=== PATIENT | female | born 1965 | race African-American/Black ===

== ENCOUNTER 2018-11-13 19:44 | Emergency (ER) | payer OTHER ==
[~2018-11-13] VITALS: Ht 167.6 cm; Wt 111.8 kg
[~2018-11-13 19:44] MED LIST: AMLO10TA55 PO; BENA5TAB6 PO; GLYB5TAB8 PO; HYDR25TA PO; LINA5TAB PO; METF-446 PO; NAPR-58 PO; SIMV20TA6 PO
[2018-11-13] MEDS ORDERED: BENA20 PO (20:43)
[2018-11-13] MEDS ORDERED: GLIP10 PO (20:43)
[2018-11-13] MEDS ORDERED: CHOL50004 PO (20:43)
[2018-11-13 20:44] LABS: GLUCOSE,POINT OF CARE 291 MG/DL (70-110)
[2018-11-13] MEDS ORDERED: KETOROLAC TROMETHAMINE 60 MG/2 ML VIAL IM ONE (21:15)
[2018-11-13] MEDS ORDERED: KETOROLAC TROMETHAMINE 30 MG/ML VIAL IM ONE (21:15)
[2018-11-13 21:48] VITALS: BP 159/80
== END 2018-11-13 22:00 | disposition home or self-care (01) ==
LOC: EMS 19:45
DX: M62.838 Other muscle spasm (principal); M54.2 Cervicalgia; E11.9 Type 2 diabetes mellitus without complications; E78.00 Pure hypercholesterolemia, unspecified; I10 Essential (primary) hypertension; Z88.1 Allergy status to other antibiotic agents; Z79.84 Long term (current) use of oral hypoglycemic drugs; Z91.018 Allergy to other foods
CPT/HCPCS: 82962; 96372; 99283; J1885

== ENCOUNTER 2019-03-31 16:22 | Emergency (ER) | payer OTHER ==
[~2019-03-31] VITALS: Ht 167.6 cm; Wt 99.5 kg
[~2019-03-31 16:22] MED LIST changes: +BENA20 PO; -BENA5TAB6 PO; +CHOL50004 PO; +GLIP10 PO; -GLYB5TAB8 PO; -NAPR-58 PO
[2019-03-31 16:32] VITALS: BP 149/84
[2019-03-31 16:39] LABS: GLUCOSE,POINT OF CARE 219 MG/DL (70-110)
[2019-03-31] MEDS ORDERED: IBUPROFEN 600 MG TABLET PO ONE (17:15)
== END 2019-03-31 17:20 | disposition home or self-care (01) ==
LOC: EMS 16:22
DX: H66.91 Otitis media, unspecified, right ear (principal); H60.91 Unspecified otitis externa, right ear

== ENCOUNTER 2020-08-21 12:59 | Emergency (ER) | payer MEDICARE, OTHER ==
[~2020-08-21] VITALS: Ht 167.6 cm; Wt 109.1 kg
[~2020-08-21 12:59] MED LIST changes: -BENA20 PO; +BENA20TA11 PO; +CHOL125C2 PO; -CHOL50004 PO; +SIMV-43 PO; -SIMV20TA6 PO
[2020-08-21 14:04] VITALS: BP 126/72
[2020-08-21] MEDS ORDERED: KETOROLAC TROMETHAMINE 10 MG TABLET PO ONE (14:15)
== END 2020-08-21 15:09 | disposition home or self-care (01) ==
LOC: EMS 13:07
DX: S09.90XA Unspecified injury of head, initial encounter (principal); E11.9 Type 2 diabetes mellitus without complications; E78.00 Pure hypercholesterolemia, unspecified; I10 Essential (primary) hypertension; F17.210 Nicotine dependence, cigarettes, uncomplicated; F12.90 Cannabis use, unspecified, uncomplicated; Z88.8 Allergy status to other drugs, medicaments and biological substances; Z79.84 Long term (current) use of oral hypoglycemic drugs; W19.XXXA Unspecified fall, initial encounter; Y93.89 Activity, other specified; Y92.89 Other specified places as the place of occurrence of the external cause; Y99.8 Other external cause status
CPT/HCPCS: 70450; 72125

== ENCOUNTER 2022-12-11 10:33 | Emergency (ER) | payer MEDICARE, OTHER ==
[~2022-12-11] VITALS: Ht 167.6 cm; Wt 93.2 kg
[~2022-12-11 10:33] MED LIST changes: -BENA20TA11 PO; +BENA20TA83 PO; -CHOL125C2 PO; +CHOL500013 PO; -GLIP10 PO; +GLIP10TA10 PO
[2022-12-11 10:40] VITALS: BP 152/74
[2022-12-11] MEDS ORDERED: IBUPROFEN 600 MG TABLET PO ONE (12:45)
[2022-12-11] MEDS ORDERED: HYDROCODONE/ACETAMINOPHEN 5-325 MG TABLET PO ONE (12:45)
[2022-12-11] MEDS ORDERED: HYDR-4723 PO (12:46)
[2022-12-11] MEDS ORDERED: IBUP-1554 PO (12:46)
== END 2022-12-11 13:04 | disposition home or self-care (01) ==
LOC: EMS 10:33
DX: S63.501A Unspecified sprain of right wrist, initial encounter (principal); M19.031 Primary osteoarthritis, right wrist; E11.9 Type 2 diabetes mellitus without complications; E78.00 Pure hypercholesterolemia, unspecified; I10 Essential (primary) hypertension; F17.210 Nicotine dependence, cigarettes, uncomplicated; F12.90 Cannabis use, unspecified, uncomplicated; Z98.890 Other specified postprocedural states; Z91.018 Allergy to other foods; W18.30XA Fall on same level, unspecified, initial encounter; Y93.89 Activity, other specified; Y92.89 Other specified places as the place of occurrence of the external cause; Y99.8 Other external cause status
CPT/HCPCS: 82962; 99283

== ENCOUNTER 2023-03-14 21:47 | Emergency (ER) | payer MEDICARE, OTHER ==
[~2023-03-14] VITALS: Ht 167.6 cm; Wt 96.4 kg
[~2023-03-14 21:47] MED LIST changes: +HYDR-4723 PO; +IBUP-1554 PO; -LINA5TAB PO
[2023-03-14 22:04] VITALS: TEMP 98.3
[2023-03-14 23:45] VITALS: BP 134/69; PULSE 71; RESP 18
[2023-03-15] MEDS ORDERED: KETOROLAC TROMETHAMINE 60 MG/2 ML VIAL IM ONE
== END 2023-03-15 00:41 | disposition home or self-care (01) ==
LOC: EMS 21:49
DX: M25.561 Pain in right knee (principal); E11.9 Type 2 diabetes mellitus without complications; E78.00 Pure hypercholesterolemia, unspecified; I10 Essential (primary) hypertension; F17.210 Nicotine dependence, cigarettes, uncomplicated; F12.90 Cannabis use, unspecified, uncomplicated; Z90.49 Acquired absence of other specified parts of digestive tract; Z98.890 Other specified postprocedural states; Z91.018 Allergy to other foods
CPT/HCPCS: 99283; 73562; 96372; J1885

== ENCOUNTER 2024-06-28 20:51 | Emergency (ER) | payer OTHER ==
[~2024-06-28] VITALS: Ht 165.1 cm; Wt 105.0 kg
[~2024-06-28 20:51] MED LIST changes: +BENA-18 PO; -BENA20TA83 PO; -GLIP10TA10 PO; +GLIP10TA17 PO; +HYDR-4062 PO; -HYDR-4723 PO
[2024-06-28 20:53] VITALS: BP 140/80; PULSE 92; RESP 16; TEMP 97; O2SAT 97
[2024-06-28] MEDS ORDERED: ACET-2080 PO (23:12)
[2024-06-28] MEDS ORDERED: IBUP-1554 PO (23:12)
[2024-06-28] MEDS: IBUPROFEN 600 MG TABLET PO ONE (23:22)
[2024-06-28] MEDS: ACETAMINOPHEN/CODEINE 300-30 MG TABLET PO ONE (23:22)
== END 2024-06-28 23:26 | disposition home or self-care (01) ==
LOC: EMS 20:51
DX: S20.212A Contusion of left front wall of thorax, initial encounter (principal); I10 Essential (primary) hypertension; E11.9 Type 2 diabetes mellitus without complications; E78.00 Pure hypercholesterolemia, unspecified; Z90.49 Acquired absence of other specified parts of digestive tract; Z79.84 Long term (current) use of oral hypoglycemic drugs; Z79.899 Other long term (current) drug therapy; W22.8XXA Striking against or struck by other objects, initial encounter; Y93.89 Activity, other specified; Y92.89 Other specified places as the place of occurrence of the external cause; Y99.8 Other external cause status
CPT/HCPCS: 71101; 93005; 99283; 99284

== ENCOUNTER 2025-01-26 01:35 | Emergency (ER) | payer OTHER ==
[~2025-01-26] VITALS: Ht 167.6 cm; Wt 96.4 kg
[~2025-01-26 01:35] MED LIST changes: +ACET-2080 PO; -GLIP10TA17 PO
[2025-01-26 01:44] VITALS: BP 128/95; PULSE 98; RESP 16; TEMP 98.2; O2SAT 100
[2025-01-26 03:13] LABS: BASOPHILS % (AUTO) 0.7 % (0.0-2.0); HEMATOCRIT 32.7 % (36-46); HEMOGLOBIN 10.7 g/dL (12.0-16.0); LYMPHOCYTES # (AUTO) 2.8 K/uL (1.0-4.8); LYMPHOCYTES % (AUTO) 43.4 % (22.0-44.0); MEAN CORPUSCULAR HEMOGLOBIN 28.5 pg (26.0-34.0); MEAN CORPUSCULAR HGB CONC 32.8 G/dL (31.0-37.0); MEAN CORPUSCULAR VOLUME 87 fL (80-100); MONOCYTES # (AUTO) 0.5 K/uL (0.1-1.0); MONOCYTES % (AUTO) 8.4 % (2.0-9.0); NEUTROPHILS # (AUTO) 2.9 K/uL (1.8-7.7); NEUTROPHILS % (AUTO) 44.5 % (40.0-70.0); PLATELET COUNT (AUTO) 272 K/uL (150-450); RED BLOOD CELL COUNT(AUTO) 3.76 MIL/uL (4.00-5.20); RED CELL DISTRIBUTION WIDTH 14.9 % (11.5-14.5); WHITE BLOOD COUNT (AUTO) 6.5 K/uL (4.5-11.0)
[2025-01-26 03:15] LABS: CARBON DIOXIDE 25 mmol/L (22-29); CHLORIDE 102 mmol/L (98-107); POTASSIUM 3.8 mmol/L (3.5-5.1); SODIUM SERUM 142 mmol/L (136-145)
[2025-01-26 03:16] LABS: ANION GAP 15 mmol/L (8-16); CALCIUM, TOTAL 9.6 mg/dL (8.8-10.5); CREATININE 0.77 mg/dL (0.60-1.30); GLOMERULAR FILTR. RATE CALC > 60 mL/min (>60); GLUCOSE,RANDOM 123 mg/dL (70-110); UREA NITROGEN, BLOOD 16 mg/dL (7-18)
[2025-01-26 03:23] LABS: ALCOHOL, BLOOD (SERUM) 186 mg/dL (0-10)
[2025-01-26 03:26] LABS: TROPONIN I-HIGH SENSITIVITY 12 ng/L (<51)
== END 2025-01-26 04:01 | disposition home or self-care (01) ==
LOC: EMS 01:35
DX: F10.129 Alcohol abuse with intoxication, unspecified (principal); E11.649 Type 2 diabetes mellitus with hypoglycemia without coma; J44.9 Chronic obstructive pulmonary disease, unspecified; I10 Essential (primary) hypertension; E78.00 Pure hypercholesterolemia, unspecified; F17.210 Nicotine dependence, cigarettes, uncomplicated; Z91.018 Allergy to other foods; Z90.49 Acquired absence of other specified parts of digestive tract; Z79.899 Other long term (current) drug therapy; Y90.9 Presence of alcohol in blood, level not specified
CPT/HCPCS: 99284; 80048; 84484; 85025; 36415; 82962; 93005; G0480

== ENCOUNTER 2025-02-10 02:47 | Emergency (ER) | payer OTHER ==
[~2025-02-10] VITALS: Ht 167.6 cm; Wt 108.0 kg
[2025-02-10 02:58] VITALS: TEMP 97.9
[2025-02-10] MEDS: TraMADol HCL 50 MG TABLET PO ONE (03:53)
[2025-02-10] MEDS: KETOROLAC TROMETHAMINE 30 MG/ML VIAL IM ONE (03:53)
[2025-02-10] MEDS ORDERED: TRAM50TA5 PO ×2 (04:14→14:39)
[2025-02-10 04:38] VITALS: BP 147/76; PULSE 78; RESP 15; O2SAT 100
[2025-02-11] MEDS ORDERED: TRAM50TA5 PO (09:33)
== END 2025-02-10 06:17 | disposition home or self-care (01) ==
LOC: EMS 02:47
DX: M25.511 Pain in right shoulder (principal); M19.90 Unspecified osteoarthritis, unspecified site; E11.9 Type 2 diabetes mellitus without complications; E78.00 Pure hypercholesterolemia, unspecified; I10 Essential (primary) hypertension; Z90.49 Acquired absence of other specified parts of digestive tract; F17.210 Nicotine dependence, cigarettes, uncomplicated; F12.90 Cannabis use, unspecified, uncomplicated; Z98.890 Other specified postprocedural states; Z79.899 Other long term (current) drug therapy; Z72.89 Other problems related to lifestyle
CPT/HCPCS: 99283; 73030; 93005; 96372; J1885

== ENCOUNTER 2025-04-24 23:30 | Emergency (ER) | payer OTHER ==
[~2025-04-24] VITALS: Ht 162.6 cm; Wt 97.3 kg
[~2025-04-24 23:30] MED LIST changes: +TRAM50TA5 PO
[2025-04-24 23:54] VITALS: BP 180/92; PULSE 63; RESP 16; TEMP 98.1; O2SAT 98
[2025-04-25 00:15] LABS: GLUCOMETER DEV NAME(LOC) ER.7; GLUCOSE,POINT OF CARE 51 MG/DL (70-110)
[2025-04-25 00:46] LABS: GLUCOMETER DEV NAME(LOC) ERT.7; GLUCOSE,POINT OF CARE 116 MG/DL (70-110)
[2025-04-25] MEDS: LIDOCAINE 1%/EPI 1:200,000/PF 10 ML VIAL SQ ONE (00:52)
[2025-04-25] MEDS ORDERED: CEPH-558 PO ×2 (01:27→08:24)
[2025-04-25] MEDS: CEPHALEXIN MONOHYDRATE 500 MG CAPSULE PO ONE (02:12)
== END 2025-04-25 01:34 | disposition left against medical advice (07) ==
LOC: EMS 23:44
DX: S90.851A Superficial foreign body, right foot, initial encounter (principal); E11.9 Type 2 diabetes mellitus without complications; E78.00 Pure hypercholesterolemia, unspecified; I10 Essential (primary) hypertension; F17.210 Nicotine dependence, cigarettes, uncomplicated; F12.90 Cannabis use, unspecified, uncomplicated; Z90.49 Acquired absence of other specified parts of digestive tract; Z98.890 Other specified postprocedural states; Z79.899 Other long term (current) drug therapy; W45.8XXA Other foreign body or object entering through skin, initial encounter; Y93.89 Activity, other specified; Y92.89 Other specified places as the place of occurrence of the external cause; Y99.8 Other external cause status
CPT/HCPCS: 82962; 99285; 10120; 73630; J3490; 99284

== ENCOUNTER 2025-05-11 05:33 | Emergency (ER) | payer OTHER ==
[~2025-05-11] VITALS: Ht 165.1 cm; Wt 97.7 kg
[~2025-05-11 05:33] MED LIST changes: +CEPH-558 PO
[2025-05-11 05:39] VITALS: TEMP 97.8
[2025-05-11] MEDS: KETOROLAC TROMETHAMINE 60 MG/2 ML VIAL IM ONE (09:19)
[2025-05-11 12:15] VITALS: BP 135/76; PULSE 84; RESP 18; O2SAT 98
[2025-05-11] MEDS ORDERED: IBUP-1492 PO (12:16)
[2025-05-11 16:30] LABS: GLUCOMETER DEV NAME(LOC) ER.7; GLUCOSE,POINT OF CARE 88 MG/DL (70-110)
== END 2025-05-11 12:27 | disposition home or self-care (01) ==
LOC: EMS 05:35
DX: M65.812 Other synovitis and tenosynovitis, left shoulder (principal); M25.512 Pain in left shoulder; E11.9 Type 2 diabetes mellitus without complications; E78.00 Pure hypercholesterolemia, unspecified; I10 Essential (primary) hypertension; Z79.899 Other long term (current) drug therapy; Z90.49 Acquired absence of other specified parts of digestive tract; Z91.018 Allergy to other foods
CPT/HCPCS: 99283; 82962; 73030; 96372; J1885